=== PATIENT | female | born 1990 | race Caucasian/White ===

== ENCOUNTER 2016-09-22 11:32 | Emergency (ER) | payer BC ==
[2016-09-22 13:14] VITALS: BP 120/67
--- NOTE | 2016-09-22 13:53 | UC ---
Throat Pain/Nasal Beto HPI - HPI Summary HPI Summary: 25 female presents with complaints of cough, nasal congestion, dysphagia x 3 weeks. She has tried drinking teas, OTC remedies, guerrero-seltzer and dayquil without any relief. Also complains of headache. Denies ear pain, nausea, vomiting, and SOB. Admits to fever on Friday of 101F but has not had one since. States she is just sick of being sick and nothing has helped her. Denies known sick contacts. States her sore throat has become worse and feels more swollen over the past 2 days. Denies PMHx. - History of Current Complaint Chief Complaint: UCRespiratory Stated Complaint: COUGH,FEVER,SORE THROAT Time Seen by Provider: 09/22/16 13:10 Hx Obtained From: Patient Hx Last Menstrual Period: 08/07/16 ?: No Onset/Duration: Gradual Onset, Lasting Weeks, Still Present, Worse Since Severity: Moderate Cough: Other: - cough is productive at times Associated Signs & Symptoms: Positive: Dysphagia, Sinus Discomfort, Nasal Discharge, Fever - Allergies/Home Medications Allergies/Adverse Reactions: Allergies Allergy/AdvReac Type Severity Reaction Status Date / Time Sulfa Antibiotics Allergy Unknown Verified 09/22/16 13:14 Reaction Details Home Medications: Home Medications Levonorgestrel-Ethinyl Estradi [Seasonique] 1 tab PO DAILY 09/22/16 [History Confirmed 09/22/16] PMH/Surg Hx/FS Hx/Imm Hx - Surgical History Surgical History: Yes Surgery Procedure, Year, and Place: tonsillectomy 97 - Family History Known Family History: Positive: None - Social History Alcohol Use: Occasionally Substance Use Type: None Smoking Status (MU): Heavy Every Day Tobacco Smoker Amount Used/How Often: 1/2 ppd - Immunization History Vaccination Up to Date: Yes Review of Systems Constitutional: Fever Skin: Negative Eyes: Negative ENT: Sore Throat, Ear Ache, Nasal Discharge Respiratory: Cough Cardiovascular: Negative Gastrointestinal: Negative Genitourinary: Negative Motor: Negative Neurovascular: Negative Musculoskeletal: Negative Neurological: Headache Psychological: Negative All Other Systems Reviewed And Are Negative: Yes Physical Exam Triage Information Reviewed: Yes Appearance: Well-Appearing - sounds congested when speaking, coughing during exam, No Pain Distress, Well-Nourished Vital Signs: Initial Vital Signs Temp 97.3 F 09/22/16 13:08 Pulse 62 09/22/16 13:08 Resp 14 09/22/16 13:08 BP 120/67 09/22/16 13:08 Pulse Ox 100 09/22/16 13:08 Vital Signs Reviewed: Yes Eyes: Positive: Conjunctiva Clear ENT: Positive: Normal ENT inspection, Hearing grossly normal, Pharynx normal, Nasal congestion, Nasal drainage, TMs normal. Negative: Tonsillar swelling - no tonsils visualized- tonsillectomy, Tonsillar exudate Dental: Negative: Percussion Tenderness @, Cervical Lymphadenopathy Neck: Positive: Supple, Nontender, No Lymphadenopathy Respiratory: Positive: Chest non-tender, Lungs clear, Normal breath sounds, No respiratory distress, No accessory muscle use Cardiovascular: Positive: RRR, No Murmur, Pulses Normal, Brisk Capillary Refill Abdominal Exam: Normal Musculoskeletal: Positive: Strength Intact, ROM Intact Neurological: Positive: Alert Psychological Exam: Normal Skin Exam: Normal Throat Pain/Nasal Course/Dx - Course Course Of Treatment: due to length of symptoms, trail of OTC medications and no relief, patient will be given antibiotics and flonase. fluids, continue OTC meds as needed. encouraged probiotics and tylenol/ibuprofen. aware of worsening signs and symptoms, patient is in agreement with plan. - Differential Dx/Diagnosis Differential Diagnosis/HQI/PQRI: Influenza, Mononucleosis, Pharyngitis, Sinusitis, Tonsillitis, URI Provider Diagnoses: Bronchitis, URI Discharge - Discharge Plan Condition: Stable Disposition: HOME Prescriptions: Azithromycin TAB* [Zithromax TAB (Z-CLARISSA) 250 mg #6 tabs] 2 tab PO .TODAY, THEN 1 DAILY #1 clarissa Fluticasone NASAL SPRAY 50MCG* [Flonase NASAL SPRAY 50MCG*] 2 spray BOTH NARES DAILY #1 btl Patient Education Materials: Acute Bronchitis (ED), Upper Respiratory Infection (ED) Referrals: Marva Wilkes MD [Primary Care Provider] - Additional Instructions: Take prescribed antibiotic as directed. Use prescribed flonase as directed. This does lessen effect of control so suggest refraining from sexual activity while taking antibiotic. Also recommend taking probiotic in between taking antibiotic to replenish chin and antihistamine such as claritin or zyrtec. Continue OTC Guerrero [place] and Dayquil as needed. Wash hands frequently and drink plenty of fluids.
== END 2016-09-22 14:02 | disposition home or self-care (01) ==
LOC: UCCORT 11:32
DX: J40 Bronchitis, not specified as acute or chronic (principal); J06.9 Acute upper respiratory infection, unspecified; Z88.2 Allergy status to sulfonamides; F17.210 Nicotine dependence, cigarettes, uncomplicated
CPT/HCPCS: 99212; G0463